=== PATIENT | female | born 1960 | race Caucasian/White ===

== ENCOUNTER → 2017-12-15 | Outpatient (CLI) | payer BC, MEDICARE ==
--- NOTE | 2017-12-19 09:14 | MM ---
Reason for exam: screening (asymptomatic). Last mammogram was performed 1 year and 4 months ago. History: Patient is postmenopausal. Family history of breast cancer in sister at age 55 and breast cancer in mother at age 63. Benign left mammotome panel of the left breast, June 26, 2008. Physical Findings: A clinical breast exam by your physician is recommended on an annual basis and results should be correlated with mammographic findings. MG 3D Screening Mammo W/Cad Bilateral CC and MLO view(s) were taken. Prior study comparison: August 05, 2016, bilateral MG screening mammo w CAD. August 04, 2015, bilateral MG screening mammo w CAD. June 07, 2014, bilateral MG screening mammo w CAD. January 06, 2012, bilateral digital screening mammo w/CAD. The breast tissue is heterogeneously dense. This may lower the sensitivity of mammography. Previous mammotome biopsy in the left breast. No significant changes when compared with prior studies. ASSESSMENT: Negative, BI-RAD 1 RECOMMENDATION: Routine screening mammogram of both breasts in 1 year.
== END | disposition home or self-care (01) ==
LOC: RADMAMWWP 08:27
PROVIDERS: ATTEND Obstetrics & Gynecology
DX: Z12.31 Encounter for screening mammogram for malignant neoplasm of breast (principal)
CPT/HCPCS: 77063; 77067

== ENCOUNTER → 2018-10-03 | Outpatient (CLI) | payer BC ==
--- NOTE | 2018-10-03 16:01 | CT ---
EXAMINATION TYPE: CT brain wo con DATE OF EXAM: 10/03/2018 COMPARISON: None HISTORY: c/o headaches to left side of head X [address] DLP: 1108.[address] of the brain was performed. The ventricles, basal cisterns and sulci overlying the cerebral convexities demonstrate mild enlargem ent. There is no evidence for intracranial hemorrhage or sulcal effacement. There is decreased attenuation about the periventricular white matter and deep white matter of both c erebral hemispheres, compatible with chronic small vessel ischemia. Differential diagnosis does inclu de demyelination. No mass effects are seen.No midline shift. Osseous calvarium is intact. Chronic ethmoid sinusitis. Chronic left-sided mastoiditis. Soft tissue within the middle ear cavity may reflect cholesteatoma. If symptoms persist consider MRI. IMPRESSION: 1. Age related atrophic and chronic small vessel ischemic change without acute intracranial process s een at this time.
== END ==
LOC: RADCTMAIN 15:35
PROVIDERS: ATTEND Family Medicine
DX: G31.1 Senile degeneration of brain, not elsewhere classified (principal); I67.82 Cerebral ischemia
CPT/HCPCS: 70450

== ENCOUNTER → 2018-11-09 | Outpatient (CLI) | payer BC ==
--- NOTE | 2018-11-09 15:15 | CT ---
EXAMINATION TYPE: CT soft tissue neck wo con DATE OF EXAM: 11/09/2018 COMPARISON: None HISTORY: 58-year-old female with hoarseness for months/voice change. Achalasia of cardia, screening C T exam. TECHNIQUE: Contiguous axial scanning of the soft tissues of the neck without IV contrast. Coronal and sagittal reconstructions performed. CT DLP: 465.50 mGycm Automated exposure control for dose reduction was used. FINDINGS: Visualized intracranial structures, orbits and globes, paranasal sinuses, and right mastoid air cells appear clear. There is opacification of the left mastoid air cells and left middle ear cavity. Lack of IV contrast limits assessment of the mucosal space. No evident asymmetry of the nasopharynx. Lobulated tissue partially effacing the bilateral vallecular spaces compatible with lingual tonsillar hypertrophy. Noncontrast appearance to the glottic and subglottic structures shows no gross abnormality. Vocal fol ds appear symmetrical. Epiglottis and prevertebral soft tissues are normal. Tracheal column is clear. Thyroid gland appears small. Submandibular and parotid glands appear satisfactory. Scattered prominent but nonenlarged upper cervical lymph nodes measure up to 7 mm. No cervical lympha denopathy by CT size criteria. Chest reported separately. Bones: Mild to moderate degenerative disc disease at C5-T1 levels. IMPRESSION: 1. OPACIFICATION OF THE LEFT MIDDLE EAR CAVITY AND LEFT MASTOID AIR CELLS. CORRELATE FOR OTOMASTOIDIT IS. 2. SOME PROMINENT BUT NONENLARGED UPPER CERVICAL LYMPH NODES MEASURING UP TO 7 MM LIKELY REACTIVE/POS T INFLAMMATORY. 3. LINGUAL TONSILLAR HYPERTROPHY INCIDENTALLY NOTED. 4. ASSESSMENT OF THE MUCOSAL SPACE IS LIMITED BY NONCONTRAST TECHNIQUE. NO OBVIOUS ABNORMALITY IS LING NTIFIED. THE VOCAL FOLDS ARE SYMMETRICAL. 5. CHEST REPORTED SEPARATELY.
--- NOTE | 2018-11-10 04:09 | CTL ---
EXAMINATION TYPE: CT Low Dose Lung DATE OF EXAM ORDERED: 11/09/2018 HISTORY: 58-year-old female with personal history of tobacco use. Lung cancer screening CT DLP: 111.[address] CTDI: 2.9 mGy Automated exposure control for dose reduction was used. SCREENING VISIT: Baseline COMPARISON: None TECHNIQUE: Low dose computed tomography scan was performed through the chest at 1 mm thick sections a nd reconstructed images in the coronal/sagittal plane at 1 mm thick sections. Additional coronal MIP reconstructions performed. CT DIAGNOSTIC QUALITY: Satisfactory FINDINGS: Heart normal size without pericardial effusion. Aorta normal caliber with conventional arch was a branching anatomy. Minimal atherosclerotic arch ayaka cifications are present. Scattered nonenlarged mediastinal lymph nodes. No thoracic lymphadenopathy by CT size criteria. There is mild diffuse bronchial wall thickening and mild diffuse emphysematous change. -4 mm peripheral right upper lobe subpleural pulmonary nodule axial image 71. -4 mm subpleural pulmonary nodule posteromedial left upper lobe axial image 73. -5 mm right middle lobe pulmonary nodule axial image 198. -Tiny 4 mm subpleural pulmonary nodule peripheral left base axial image 221. -4 mm subpleural pulmonary nodule peripheral left lower lobe axial image 179. Some strandy atelectasis or scarring at the inferior lingula. No consolidation or pleural effusion. Visualized upper abdomen shows an indeterminate 1.3 cm nodule within the left adrenal gland showing a ttenuation of 28 Hounsfield units. Bones: Degenerative disc disease mid to lower thoracic spine. No osseous destructive process seen. Th ere is some inferior endplate deformity at T8 suspected remote posttraumatic. IMPRESSION: 1. LungRADS 2 (benign appearance, <1% chance of malignancy) - a few scattered 4 to 5 mm pulmonary nod ules at baseline. 2. COPD with mild diffuse emphysema. 3. A 1.3 cm nodule of the left adrenal gland. RECOMMENDATION: 1. Continue annual low-dose lung cancer screening CT. 2. Smoking cessation. 3. Probable left adrenal adenoma. However, density characteristics are not diagnostic. 6 month follow -up adrenal washout protocol CT recommended. CT LUNG RAD: Lung-Rad 2 Benign Appearance or Behavior
== END ==
LOC: RADCTMAIN 13:47
PROVIDERS: ATTEND Family Medicine
DX: Z12.2 Encounter for screening for malignant neoplasm of respiratory organs (principal); Z87.891 Personal history of nicotine dependence
CPT/HCPCS: 70490; G0297

== ENCOUNTER → 2019-01-15 | Outpatient (CLI) | payer BC ==
--- NOTE | 2019-01-15 17:25 | BD ---
EXAMINATION TYPE: Axial Bone Density DATE OF EXAM: 01/15/2019 COMPARISON: NONE CLINICAL HISTORY: 58-year-old female postmenopausal screening Height: 67 IN Weight: 176 LBS FRAX RISK QUESTIONS: Secondary Osteoporosis: 3. Menopause before 45: YES AGE 42 Current Tobacco Use: YES RISK FACTORS HISTORY OF: Active: YES Diet low in dairy products/other sources of calcium: YES Postmenopausal woman: AGE 42 MEDICATIONS: Thyroid Medications: YES Which medication: SYNTHROID How Lon + YEARS Additional Medications: SYNTHROID, HYDROCODONE, EXAM MEASUREMENTS: Bone mineral densitometry was performed using the [employer] System. Bone mineral density as measured about the Lumbar spine is: ----- L1-L4(G/cm2): 1.324 T Score Values are as follows: ----- L2: 0.5 ----- L3: 1.5 ----- L4: 1.7 ----- L1-L4: 1.2 Bone mineral density BASELINE Bone mineral density about the R hip (g/cm2): 1.004 Bone mineral density about the L hip (g/cm2): 1.008 T Score values are as follows: -----R Neck: -0.2 -----L Neck: -0.2 -----R Total: 0.0 -----L Total: 0.0 Bone mineral density BASELINE IMPRESSION: Normal (Values between +1 and -1 indicate normal bone mass). Consider repeating this study in 5 year s or sooner if there is some new clinical indication. NOTE: T-SCORE=SD OF THE YOUNG ADULT MEAN.
--- NOTE | 2019-01-16 09:29 | MM ---
Reason for exam: screening (asymptomatic). Last mammogram was performed 1 year and 1 month ago. History: Patient is postmenopausal. Family history of breast cancer in sister at age 55 and breast cancer in mother at age 63. Benign left mammotome panel of the left breast, June 26, 2008. Physical Findings: A clinical breast exam by your physician is recommended on an annual basis and results should be correlated with mammographic findings. MG 3D Screening Mammo W/Cad Bilateral CC and MLO view(s) were taken. Prior study comparison: December 15, 2017, bilateral MG 3d screening mammo w/cad. August 12, 2016, right breast MG 3d work up w/cad RT. The breast tissue is heterogeneously dense. This may lower the sensitivity of mammography. Benign appearing bilateral calcifications. No suspicious abnormality. No significant changes when compared with prior studies. ASSESSMENT: Benign, BI-RAD 2 RECOMMENDATION: Routine screening mammogram of both breasts in 1 year.
== END | disposition home or self-care (01) ==
LOC: RADMAMWWP 09:48
PROVIDERS: ATTEND Obstetrics & Gynecology
DX: Z12.31 Encounter for screening mammogram for malignant neoplasm of breast (principal); Z13.820 Encounter for screening for osteoporosis
CPT/HCPCS: 77063; 77067; 77080

== ENCOUNTER → 2020-06-16 | Outpatient (CLI) | payer BC ==
--- NOTE | 2020-06-16 22:22 | XR ---
EXAMINATION TYPE: XR foot complete LT DATE OF EXAM: 06/16/2020 COMPARISON: NONE HISTORY: 59-year-old female M79.672, pain and swelling of the left fifth digit. TECHNIQUE: 3 views FINDINGS: There is some mild soft tissue swelling of the little toe. More distal incidentally noted. Mild bunio n formation. Extensive bony overlap on the lateral view limiting assessment. No acute fracture, sublu xation, dislocation seen. IMPRESSION: Some soft tissue swelling of the little toe. Mild bunion formation. No acute osseous abnormality seen .
== END | disposition home or self-care (01) ==
LOC: RADXRMAIN 14:30
PROVIDERS: ATTEND Family Medicine
DX: M79.89 Other specified soft tissue disorders (principal); M21.612 Bunion of left foot

== ENCOUNTER → 2020-08-06 | Outpatient (CLI) | payer BC ==
--- NOTE | 2020-08-07 08:19 | MM ---
Reason for exam: screening (asymptomatic). Last mammogram was performed 1 year and 7 months ago. History: Patient is postmenopausal. Family history of breast cancer in sister at age 55 and breast cancer in mother at age 63. Benign left mammotome panel of the left breast, June 26, 2008. Physical Findings: A clinical breast exam by your physician is recommended on an annual basis and results should be correlated with mammographic findings. MG Screening Mammo w CAD Bilateral CC and MLO view(s) were taken. Prior study comparison: January 15, 2019, bilateral MG 3d screening mammo w/cad. December 15, 2017, bilateral MG 3d screening mammo w/cad. The breast tissue is heterogeneously dense. This may lower the sensitivity of mammography. There are benign appearing round calcifications bilaterally. Asymmetric breast tissue in the right breast, stable. There is no discrete abnormality. ASSESSMENT: Benign, BI-RAD 2 RECOMMENDATION: Routine screening mammogram of both breasts in 1 year.
== END | disposition home or self-care (01) ==
LOC: RADMAMWWP 10:59
PROVIDERS: ATTEND Obstetrics & Gynecology
DX: Z12.31 Encounter for screening mammogram for malignant neoplasm of breast (principal); Z80.3 Family history of malignant neoplasm of breast
CPT/HCPCS: 77067

== ENCOUNTER → 2021-12-01 | Outpatient (CLI) | payer BC ==
[~2021-12-01] MED LIST: SODIUM CHLORIDE 0.9% 50 ML IVPB NR; SODIUM CHLORIDE 0.9% 500 ML 500 ML in EMPTY BAG 1 BAG IV PRN
[2021-12-01] MEDS: SOTROVIMAB (EUA) 500 MG in SODIUM CHLORIDE 0.9% 100 ML IVPB NR (13:25)
[2021-12-01 13:36] VITALS: TEMP 98.4
[2021-12-01 14:22] VITALS: BP 106/69; PULSE 50; RESP 16
== END ==
LOC: PROCWHC3 12:57
PROVIDERS: ATTEND Nurse Practitioner Family
DX: U07.1 COVID-19 (principal); Z87.891 Personal history of nicotine dependence; Z91.048 Other nonmedicinal substance allergy status

== ENCOUNTER → 2022-01-07 | Outpatient (CLI) | payer BC, MEDICARE ==
--- NOTE | 2022-01-08 11:56 | MM ---
Reason for exam: screening (asymptomatic). Last mammogram was performed 1 year and 5 months ago. History: Patient is postmenopausal. Family history of breast cancer in sister at age 55 and breast cancer in mother at age 63. Benign left mammotome panel of the left breast, June 26, 2008. Physical Findings: A clinical breast exam by your physician is recommended on an annual basis and results should be correlated with mammographic findings. MG 3D Screening Mammo W/Cad Bilateral CC and MLO view(s) were taken. XCCL view(s) were taken of the right breast. Prior study comparison: August 06, 2020, bilateral MG screening mammo w CAD. January 15, 2019, bilateral MG 3d screening mammo w/cad. The breast tissue is heterogeneously dense. This may lower the sensitivity of mammography. Stable benign calcifications. There is no discrete abnormality. No significant changes when compared with prior studies. ASSESSMENT: Benign, BI-RAD 2 RECOMMENDATION: Routine screening mammogram of both breasts in 1 year.
== END | disposition home or self-care (01) ==
LOC: RADMAMWWP 11:45
PROVIDERS: ATTEND Obstetrics & Gynecology
DX: Z12.31 Encounter for screening mammogram for malignant neoplasm of breast (principal); Z78.0 Asymptomatic menopausal state; Z80.3 Family history of malignant neoplasm of breast
CPT/HCPCS: 77063; 77067

== ENCOUNTER → 2023-06-30 | Outpatient (CLI) | payer MEDICARE ==
--- NOTE | 2023-06-30 13:26 | BD ---
EXAMINATION TYPE: Axial Bone Density DATE OF EXAM: 06/30/2023 CLINICAL HISTORY: 62 years old Female. ICD-10 CODE: Z78.0 ASYMPTOMATIC MENOPAUSAL STATE Height: 66in Weight: 168lb FRAX RISK QUESTIONS: Secondary Osteoporosis: 3. Menopause before 45: yes Current Tobacco Use: yes RISK FACTORS HISTORY OF: Active: yes Postmenopausal woman: yes MEDICATIONS: Thyroid Medications: Which medication: Synthroid How Lon+ years Additional Medications: Additional History: EXAM MEASUREMENTS: Bone mineral densitometry was performed using the [employer] System. Bone mineral density as measured about the Lumbar spine is: ----- L1-L4(G/cm2): 1.302 T Score Values are as follows: ----- L1: 0.6 ----- L2: 1.3 ----- L3: 1.2 ----- L4: 0.8 ----- L1-L4: 1.0 Z Score Values are as follows: ----- L1: 1.5 ----- L2: 2.2 ----- L3: 2.1 ----- L4: 1.7 ----- L1-L4: 1.9 Bone mineral density has: Decreased -1.7% since study of: 01-15-2019 Bone mineral density about the R hip (g/cm2): 0.990 Bone mineral density about the L hip (g/cm2): 0.962 T Score values are as follows: -----R Neck: -0.6 -----L Neck: -0.7 -----R Total: -0.1 -----L Total: -0.4 Z Score values are as follows: -----R Neck: 0.4 -----L Neck: 0.4 -----R Total: 0.6 -----L Total: 0.3 Bone mineral density has: Decreased -2.9% since study of: 01-15-2019 FRAX%s: The graph provided illustrates a 6.7% chance for a major osteoporotic fx and a 0.5% chance fo r the hips probability for fx in 10 years time. IMPRESSION: Normal (Values between +1 and -1 indicate normal bone mass). Consider repeating this study in 5 year s or sooner if there is some new clinical indication. NOTE: T-SCORE=SD OF THE YOUNG ADULT MEAN.
== END | disposition home or self-care (01) ==
LOC: RADBDWWP 12:39
PROVIDERS: ATTEND Family Medicine
DX: Z78.0 Asymptomatic menopausal state (principal)
CPT/HCPCS: 77080

== ENCOUNTER → 2023-12-15 | Outpatient (CLI) | payer MEDICARE ==
--- NOTE | 2023-12-15 15:44 | CTL ---
EXAMINATION TYPE: CT Low Dose Lung DATE OF EXAM ORDERED: 12/15/2023 HISTORY: . Lung cancer screening CT DLP: [address] CTDI: 2.68 mGy Automated exposure control for dose reduction was used. COMPARISON: None available. TECHNIQUE: Low dose computed tomography scan was performed through the chest at 1 mm thick sections a nd reconstructed images in multiple planes at 1 mm and [address] DIAGNOSTIC QUALITY: Satisfactory FINDINGS: LUNG NODULES: None. LUNGS: COPD: Severity: None Fibrosis: Severity: None Lymph nodes: No significant adenopathy. Other findings: RIGHT PLEURAL SPACE: Effusion: None Calcification: None Thickening: None Pneumothorax: None LEFT PLEURAL SPACE: Effusion: None Calcification: None Thickening: None Pneumothorax: None HEART: Heart Size: Normal Coronary Calcification: None Pericardial Effusion: None OTHER FINDINGS: Upper abdomen: None Bony thorax: None Supraclavicular region: None Other: None IMPRESSION: 1. Small right middle lobe pulmonary nodule. 2. No acute findings otherwise seen. CT LUNG RAD AND CT CHEST RECOMMENDATION: Lung-Rad 2 Benign Appearance or Behavior: Continue annual sc reening with LDCT in 12 months.
== END | disposition home or self-care (01) ==
LOC: RADCTMAIN 14:54
PROVIDERS: ATTEND Family Medicine
DX: Z12.2 Encounter for screening for malignant neoplasm of respiratory organs (principal); R91.1 Solitary pulmonary nodule; F17.210 Nicotine dependence, cigarettes, uncomplicated
CPT/HCPCS: 71271

== ENCOUNTER → 2024-03-15 | Outpatient (CLI) | payer MEDICARE ==
--- NOTE | 2024-03-15 16:41 | CT ---
EXAMINATION TYPE: CT brain wo/w con DATE OF EXAM: 03/15/2024 COMPARISON: 10/03/2018 HISTORY: syncope CT DLP: 2163.2mGycm CONTRAST: CT scan of the head is performed without and with IV Contrast, patient injected with 100 mL of Isovue 370. Unenhanced followed by contrast enhanced CT of the brain is submitted for evaluation. The ventricles are midline. There is no evidence for intracranial hemorrhage or extra-axial collection. No mass e ffects are identified. Visualized bony calvarium is intact. Contrast is administered and no enhanci ng lesions are detected. No pathologic enhancement is identified. If symptoms persist consider MRI. IMPRESSION: Unremarkable CT brain.
--- NOTE | 2024-03-16 09:40 | US ---
EXAMINATION TYPE: US carotid duplex BILAT DATE OF EXAM: 03/15/2024 COMPARISON: NONE CLINICAL INDICATION: Female, 63 years old with history of G45.3 AMAUROSIS FUGAX,R20. HAND NUMBNESS,R2 0.2 TINGLING OF S; TECHNIQUE: Carotid duplex ultrasound examination. Indirect Doppler criteria was utilized. FINDINGS: EXAM MEASUREMENTS: RIGHT: Peak Systolic Velocity (PSV) cm/sec ----- Right CCA: 50.0 ----- Right ICA: 128.0 ----- Right ECA: 86.0 ICA/CCA ratio: 2.6 RIGHT: End Diastole cm/sec ----- Right CCA: 9.6 ----- Right ICA: 21.8 ----- Right ECA: 12.2 LEFT: Peak Systolic Velocity (PSV) cm/sec ----- Left CCA: 69.6 ----- Left ICA: 102.0 ----- Left ECA: 103.0 ICA/CCA ratio: 1.5 LEFT: End Diastole cm/sec ----- Left CCA: 17.4 ----- Left ICA: 29.3 ----- Left ECA: 20.8 VERTEBRALS (direction of flow): Right Vertebral: Antegrade Left Vertebral: Antegrade Rhythm: Normal Right ICA/CCA ratio 2.6 IMPRESSION: 1. Moderate heterogeneous calcified plaque within the right carotid bifurcation. Based on peak systol ic velocities and ratios, there is a moderate 50-69% stenosis of the proximal right internal carotid artery. 2. No hemodynamically significant stenosis in the left internal carotid artery. Criteria for Assigning % of Stenosis / Diameter reduction (Estimation based on the indirect measurements of the internal carotid artery velocities (ICA PSV). 1. Normal (no stenosis)=ICA PSV < 125 cm/s: ratio < 2.0: ICA EDV<40 cm/s. 2. Less than 50% stenosis=ICA PSV < 125 cm/s: ratio < 2.0: ICA EDV<40 cm/s. 3. 50 to 69% stenosis=ICA PSV of 125 to 230 cm/s: ration 2.0 ? 4.0: ICA EDV 40-100 cm/s. 4. Greater than 70% stenosis to near occlusion= ICA PSV > 230 cm/s: ratio > 4.0: ICA EDV > 100 cm/s. 5. Near occlusion= ICA PSV velocities may be low or undetectable: variable ratio and ICA EDV. 6. Total occlusion=unable to detect flow.
--- NOTE | 2024-03-18 20:24 | MM ---
Reason for Exam: Screening (asymptomatic). Last mammogram was performed 1 year(s) and 2 month(s) ago. Patient History: Menarche at age 15. First Full-Term at age 22. Postmenopausal. 06/26/2008, Benign Core Biopsy on the left side. Sister had breast cancer, age 55. Mother had breast cancer, age 63. Risk Values: Rolf 5 year model risk: 7.1%. NCI Lifetime model risk: 29.8%. Prior Study Comparison: 08/06/2020 Bilateral Screening Mammogram, [facility]. 01/07/2022 Bilateral Screening Mammogram, [facility]. 01/10/2023 Bilateral MG 3D screening mammo w/cad, [facility]. Tissue Density: The breasts are heterogeneously dense, which may obscure small masses. Findings: Analyzed By CAD. Benign bilateral oil cyst calcifications. There is no suspicious group of microcalcifications or new suspicious mass in either breast. Overall Assessment: Benign, BI-RAD 2 Management: Screening Mammogram of both breasts in 1 year. SEE NOTE BELOW IN REGARDS TO PATIENT'S INCREASED 5 YEAR ROLF SCORE AND INCREASED LIFETIME RISK SCORE. Patient should continue monthly self-breast exams. A clinical breast exam by your physician is recommended on an annual basis. This exam should not preclude additional follow-up of suspicious palpable abnormalities. Note on Rolf scores and lifetime risk: 1. A Rolf score greater than 3% is considered moderate risk. If this is the case, consider specialist referral to assess eligibility for a risk reducing agent. 2. If overall lifetime risk for the development of breast cancer is 20% or higher, the patient may qualify for future screening with alternating mammogram and breast MRI. Electronically signed and approved by: Ben Gomez M.D. Radiologist
== END | disposition home or self-care (01) ==
LOC: RADMAMWWP 15:10
PROVIDERS: ATTEND Family Medicine
DX: Z12.31 Encounter for screening mammogram for malignant neoplasm of breast (principal); I65.21 Occlusion and stenosis of right carotid artery; R55 Syncope and collapse; Z80.3 Family history of malignant neoplasm of breast; Z78.0 Asymptomatic menopausal state
CPT/HCPCS: 77067; 77063; 93880; 70470; Q9967

== ENCOUNTER → 2024-04-12 | Outpatient (CLI) | payer MEDICARE ==
--- NOTE | 2024-04-12 12:49 | EEG ---
ELECTROENCEPHALOGRAM REPORT PREAMBLE: This is a 63-year-old female who had an episode 3 to 4 weeks ago of a near syncopal event. She was working outside for couple of hours when she felt dizzy and almost passed out. CURRENT MEDICATIONS: 1. Synthroid. 2. Aspirin. 3. [place]. EEG FINDINGS: This is a 21-channel prolonged, digital EEG recorded with video component, utilizing 10/[employer] international system with referential and bipolar montages. The recording start time is 8:37 a.m. on 04/12/2024 and recording end time is 9:31 a.m. on 04/12/2024. The background consists of well developed, well regulated, moderate voltage activity in 12 hertz alpha. Background is posterior dominant and reactive to eye opening and closing. Photic driving response was seen with some flash frequencies. Drowsiness was seen with appearance of bilaterally symmetric theta frequency rhythm. Some brief stage 2 sleep was seen with presence of sleep spindles. More deeper stages of sleep were not seen. No focal or generalized epileptiform activity was seen. EKG channel showed no obvious arrhythmia. IMPRESSION: This is a normal prolonged, EEG during wakefulness, drowsiness, and stage 2 sleep. No focal, lateralized or epileptiform activity was seen. MMODL / IJN: [id number] /
== END ==
LOC: NEUROMAIN 08:01
PROVIDERS: ATTEND Family Medicine
DX: R55 Syncope and collapse (principal); G45.3 Amaurosis fugax; R20.0 Anesthesia of skin; R20.2 Paresthesia of skin; R26.9 Unspecified abnormalities of gait and mobility; Z91.040 Latex allergy status; Z87.891 Personal history of nicotine dependence
CPT/HCPCS: 95812

== ENCOUNTER 2024-07-24 10:24 | Emergency (ER) | payer MEDICARE ==
--- NOTE | 2024-07-24 11:30 | ED ---
Back Pain HPI - General Chief Complaint: Back Pain/Injury Stated Complaint: back pain Time Seen by Provider: 07/24/24 10:38 Source: patient, RN notes reviewed Limitations: no limitations - History of Present Illness Initial Comments: This is a 63-year-old female presents emergency department for chief complaint of right lower lumbar back pain. Patient states that pain has been present since last week Tuesday and has been relatively the same pain over the past week. Patient was evaluated at [facility] on and stayed overnight until Tuesday and was discharged however high pain has been intractable. Patient was evaluated by her primary care provider as well for she was instructed report to the emergency department today for further evaluation of intractable back pain. She denies loss of bladder or bowel continence, saddle anesthesias, history of IV drug use, fevers, chills, urinary symptoms. States that she feels quite nauseated when pain arises. States that she cannot get comfortable and any type of movement exacerbates the pain - Related Data Home Medications Medication Instructions Recorded Confirmed Atorvastatin [Lipitor] 40 mg PO DAILY 12/18/15 07/24/24 Aspirin EC [Ecotrin Low Dose] 81 mg PO DAILY 07/24/24 07/24/24 Hydrocodone/Acetaminophen [[place] 1 tab PO QID 07/24/24 07/24/24 10-325] Levothyroxine Sodium [Synthroid] 125 mcg PO DAILY 07/24/24 07/24/24 predniSONE See Taper PO DIRECTED 07/24/24 07/24/24 tiZANidine [Zanaflex] 4 mg PO Q6H PRN 07/24/24 07/24/24 Allergies Allergy/AdvReac Type Severity Reaction Status Date / Time latex Allergy Rash/Hives Verified 07/24/24 14:15 Review of Systems ROS Statement: Those systems with pertinent positive or pertinent negative responses have been documented in the HPI. ROS Other: All systems not noted in ROS Statement are negative. Past Medical History Past Medical History: COPD, Hyperlipidemia, Osteoarthritis (OA), Thyroid Disorder Additional Past Medical History / Comment(s): Back pain History of Any Multi-Drug Resistant Organisms: None Reported Past Surgical History: Orthopedic Surgery, Tonsillectomy, Tubal Ligation, Uterine Ablation Additional Past Surgical History / Comment(s): arthroscopy knee Past Anesthesia/Blood Transfusion Reactions: No Reported Reaction Past Psychological History: No Psychological Hx Reported Smoking Status: Current every day smoker Past Alcohol Use History: Occasional Past Drug Use History: Marijuana - Past Family History Mother Sister(s) Family Medical History: Cancer Father Family Medical History: Cancer Mother Family Medical History: Cancer Sister(s) Family Medical History: Cancer General Exam Limitations: no limitations General appearance: alert, in no apparent distress Head exam: Present: atraumatic, normocephalic, normal inspection ENT exam: Present: normal exam, mucous membranes moist Neck exam: Present: normal inspection. Absent: tenderness, meningismus, lymphadenopathy Respiratory exam: Present: normal lung sounds bilaterally. Absent: respiratory distress, wheezes, rales, rhonchi, stridor Cardiovascular Exam: Present: regular rate, normal rhythm, normal heart sounds. Absent: systolic murmur, diastolic murmur, rubs, gallop, clicks GI/Abdominal exam: Present: soft, normal bowel sounds. Absent: distended, tenderness, guarding, rebound, rigid Extremities exam: Present: normal inspection, full ROM, normal capillary refill. Absent: tenderness, pedal edema, joint swelling, calf tenderness Back exam: Present: normal inspection, tenderness (right lumbar spine to palpation, no overlying skin changes/redness or abscess) Neurological exam: Present: alert, oriented X3, CN II-XII intact Skin exam: Present: warm, dry, intact, normal color. Absent: rash Course Vital Signs 07/24/24 07/24/24 07/24/24 10:25 13:15 16:10 Temperature 97.5 F L 98.1 F 98 F Pulse Rate 63 51 L 58 L Respiratory 24 18 18 Rate Blood Pressure 167/85 135/64 138/82 O2 Sat by Pulse 97 97 97 Oximetry Medical Decision Making - Medical Decision Making Was pt. sent in by a medical professional or institution (, PA, SILVERING DEPARTMENT SUPERVISOR, urgent care, hospital, or [facility]...) When possible be specific @ -No Did you speak to anyone other than the patient for history (EMS, parent, family, police, friend...)? What history was obtained from this source @ -No Did you review nursing and triage notes (agree or disagree)? Why? @ -I reviewed and agree with nursing and triage notes Were old charts reviewed (outside hosp., previous admission, EMS record, old EKG, old radiological studies, urgent care reports/EKG's, [facility] records)? Report findings @ -No old charts were reviewed Differential Diagnosis (chest pain, altered mental status, abdominal pain women, abdominal pain men, vaginal bleeding, weakness, fever, dyspnea, syncope, headache, dizziness, GI bleed, back pain, seizure, CVA, palpatations, mental health, musculoskeletal)? @ -Differential Back Pain: Strain, zoster, cauda equina syndrome, epidural abscess, vertebral osteomyelit is, discitis, fracture, subluxation, disc herniation, DJD, spinal stenosis, dissection, AAA, pancreatitis, peptic ulcer disease, pyelonephritis, kidney stone, this is not meant to be an all-inclusive list. EKG interpreted by me (3pts min.). @ -None X-rays interpreted by me (1pt min.). @ -None done CT interpreted by me (1pt min.). @ -CT Imaging of the lumbar spine reveals multilevel degenerative disc disease with multilevel central stenosis U/S interpreted by me (1pt. min.). @ -None done What testing was considered but not performed or refused? (CT, X-rays, U/S, labs)? Why? @ -None What meds were considered but not given or refused? Why? @ -None Did you discuss the management of the patient with other professionals (professionals i.e. , PA, SILVERING DEPARTMENT SUPERVISOR, lab, RT, psych nurse, social sciences chair, heavy antiarmor weapons infantryman, teacher, corporate ethics officer, director case)? Give summary @ -i spoke with the patient's PCP, Dr. Plaza, in regard to the patient's presentation is requesting that patient undergo repeat CT imaging and chest for inflammatory markers such as ESR and CRP and discharged the patient home with close outpatient follow-up for further evaluation of back pain Was smoking cessation discussed for >3mins.? @ -No Was critical care preformed (if so, how long)? @ -No Were there social determinants of health that impacted care today? How? (Homelessness, low income, unemployed, alcoholism, drug addiction, transportation, low edu. Level, literacy, decrease access to med. care, [place] [facility], rehab)? @ -No Was there de-escalation of care discussed even if they declined (Discuss DNR or withdrawal of care, Hospice)? DNR status @ -No What co-morbidities impacted this encounter? (DM, HTN, Smoking, COPD, CAD, Cancer, CVA, ARF, Chemo, Hep., AIDS, mental health diagnosis, sleep apnea, morbid obesity)? @ -None Was patient admitted / discharged? Hospital course, mention meds given and route, prescriptions, significant lab abnormalities, going to OR and other pertinent info. @ -Discharge. 63-year-old female with right lower back pain. Patient is noted to have tenderness to palpation of the right lumbar back. Vitals are stable. There are no red flag findings concerning for cauda equina such as loss of bladder or bowel continence or saddle anesthesias. Patient is provided with antiemetics and pain medication pending laboratory results. I spoke with patient's primary care provider and is recommend that she undergo repeat CT imaging for further evaluation reveals multilevel degenerative disc disease with mild to a level central stenosis. Laboratory results remarkable for Pauly kocytosis of 15.7, left shift of 10.7, CMP unremarkable, urinalysis negative for signs of infection. CRP mildly elevated at 1.4. Patient is provided with adequate analgesic and is requesting discharge at this time. All questions answered at bedside and strict return parameters as the patient she is verbalized understanding. Case discussed with Dr. Marx Undiagnosed new problem with uncertain prognosis? @ -No Drug Therapy requiring intensive monitoring for toxicity (Heparin, Nitro, Insulin, Cardizem)? @ -No Were any procedures done? @ -No Diagnosis/symptom? @ -right lumbar back pain Acute, or Chronic, or Acute on Chronic? @ -acute Uncomplicated (without systemic symptoms) or Complicated (systemic symptoms)? @ -uncomplicated Side effects of treatment? @ -No Exacerbation, Progression, or Severe Exacerbation? @ -No Poses a threat to life or bodily function? How? (Chest pain, [place], [place], pneumonia, PE, COPD, DKA, ARF, appy, cholecystitis, CVA, Diverticulitis, Homicidal, Suicidal, threat to staff... and all critical care pts) @ -No - Lab Data Result diagrams: 07/24/24 11:36 07/24/24 11:36 Lab Results 07/24/24 07/24/24 07/24/24 Range/Units 11:36 11:36 11:36 WBC 15.7 H (3.8-10.6) k/uL RBC 5.13 (3.80-5.40) m/uL Hgb 16.2 H (11.4-16.0) gm/dL Hct 48.7 H (34.0-46.0) % MCV 95.1 (80.0-100.0) fL MCH 31.6 (25.0-35.0) pg MCHC 33.2 (31.0-37.0) g/dL RDW 13.3 (11.5-15.5) % Plt Count 324 (150-450) k/uL MPV 7.9 Neutrophils % 69 % Lymphocytes % 24 % Monocytes % 4 % Eosinophils % 2 % Basophils % 0 % Neutrophils # 10.7 H (1.3-7.7) k/uL Lymphocytes # 3.8 (1.0-4.8) k/uL Monocytes # 0.6 (0-1.0) k/uL Eosinophils # 0.3 (0-0.7) k/uL Basophils # 0.0 (0-0.2) k/uL Sodium 140 (137-145) mmol/L Potassium 3.4 L (3.5-5.1) mmol/L Chloride 102 (98-107) mmol/L Carbon Dioxide 30 (22-30) mmol/L Anion Gap 8 mmol/L BUN 12 (7-17) mg/dL Creatinine 0.69 (0.52-1.04) mg/dL Est GFR (CKD-EPI)AfAm >90 (>60 ml/min/1.73 sqM) Est GFR (CKD-EPI)NonAf >90 (>60 ml/min/1.73 sqM) Glucose 96 (74-99) mg/dL Calcium 9.8 (8.4-10.2) mg/dL Total Bilirubin 0.8 (0.2-1.3) mg/dL AST 20 (14-36) U/L ALT 18 (4-34) U/L Alkaline Phosphatase 78 (38-126) U/L C-Reactive Protein 1.4 H (<1.0) mg/dL Total Protein 7.0 (6.3-8.2) g/dL Albumin 4.4 (3.5-5.0) g/dL Urine Color Urine Appearance (Clear) Urine pH (5.0-8.0) Ur Specific [place] (1.001-1.035) Urine Protein (Negative) Urine Glucose (UA) (Negative) Urine Ketones (Negative) Urine Blood (Negative) Urine Nitrite (Negative) Urine Bilirubin (Negative) Urine Urobilinogen (<2.0) mg/dL Ur Leukocyte Esterase (Negative) Urine RBC (0-5) /hpf Urine WBC (0-5) /hpf Ur Squamous Epith Cells (0-4) /hpf Urine Mucus (None) /hpf 07/24/24 Range/Units 11:37 WBC (3.8-10.6) k/uL RBC (3.80-5.40) m/uL Hgb (11.4-16.0) gm/dL Hct (34.0-46.0) % MCV (80.0-100.0) fL MCH (25.0-35.0) pg MCHC (31.0-37.0) g/dL RDW (11.5-15.5) % Plt Count (150-450) k/uL MPV Neutrophils % % Lymphocytes % % Monocytes % % Eosinophils % % Basophils % % Neutrophils # (1.3-7.7) k/uL Lymphocytes # (1.0-4.8) k/uL Monocytes # (0-1.0) k/uL Eosinophils # (0-0.7) k/uL Basophils # (0-0.2) k/uL Sodium (137-145) mmol/L Potassium (3.5-5.1) mmol/L Chloride (98-107) mmol/L Carbon Dioxide (22-30) mmol/L Anion Gap mmol/L BUN (7-17) mg/dL Creatinine (0.52-1.04) mg/dL Est GFR (CKD-EPI)AfAm (>60 ml/min/1.73 sqM) Est GFR (CKD-EPI)NonAf (>60 ml/min/1.73 sqM) Glucose (74-99) mg/dL Calcium (8.4-10.2) mg/dL Total Bilirubin (0.2-1.3) mg/dL AST (14-36) U/L ALT (4-34) U/L Alkaline Phosphatase (38-126) U/L C-Reactive Protein (<1.0) mg/dL Total Protein (6.3-8.2) g/dL Albumin (3.5-5.0) g/dL Urine Color Light Yellow Urine Appearance Clear (Clear) Urine pH 5.5 (5.0-8.0) Ur Specific [place] 1.015 (1.001-1.035) Urine Protein Negative (Negative) Urine Glucose (UA) Negative (Negative) Urine Ketones Negative (Negative) Urine Blood Negative (Negative) Urine Nitrite Negative (Negative) Urine Bilirubin Negative (Negative) Urine Urobilinogen <2.0 (<2.0) mg/dL Ur Leukocyte Esterase Moderate H (Negative) Urine RBC 1 (0-5) /hpf Urine WBC 4 (0-5) /hpf Ur Squamous Epith Cells 1 (0-4) /hpf Urine Mucus Rare H (None) /hpf Disposition Clinical Impression: Back pain Disposition: HOME SELF-CARE Condition: Good Instructions (If sedation given, give patient instructions): Acute Low Back Pain (ED) Additional Instructions: Return to the emergency department for any new or worsening symptoms. Recommend follow-up outpatient with your primary care provider for further evaluation. Is patient prescribed a controlled substance at d/c from ED?: No Referrals: Harvey Plaza Jr, [Primary Care Provider] - 1-2 days Time of Disposition: 15:24
[2024-07-24] MEDS: ONDANSETRON 4 MG/2 ML VIAL IVP STA (11:40)
[2024-07-24] MEDS: HYDROmorphone 1 MG/ML 1 ML SYRINGE IVP STA ×3 (11:40→15:41)
[2024-07-24 11:47] LABS: Basophils % (A) 0 %; Eosinophils # (A) 0.3 k/uL (0-0.7); Eosinophils % (A) 2 %; HCT 48.7 % (34.0-46.0); HGB 16.2 gm/dL (11.4-16.0); Lymphocytes # (A) 3.8 k/uL (1.0-4.8); Lymphocytes % (A) 24 %; MCH 31.6 pg (25.0-35.0); MCHC 33.2 g/dL (31.0-37.0); MCV 95.1 fL (80.0-100.0); Mean Platelet Volume 7.9; Monocytes # (A) 0.6 k/uL (0-1.0); Monocytes % (A) 4 %; Neutrophils # (A) 10.7 k/uL (1.3-7.7); Neutrophils % (A) 69 %; Platelet Count 324 k/uL (150-450); RBC 5.13 m/uL (3.80-5.40); RDW 13.3 % (11.5-15.5); WBC 15.7 k/uL (3.8-10.6)
[2024-07-24 12:01] LABS: ALT 18 U/L (4-34); AST 20 U/L (14-36); African American GFR (CKD) >90 (>60 ml/min/1.73 sqM); Albumin 4.4 g/dL (3.5-5.0); Alkaline Phosphatase 78 U/L (38-126); Blood Urea Nitrogen 12 mg/dL (7-17); Calcium 9.8 mg/dL (8.4-10.2); Carbon Dioxide 30 mmol/L (22-30); Chloride 102 mmol/L (98-107); Glucose 96 mg/dL (74-99); Non-African American GFR(CKD) >90 (>60 ml/min/1.73 sqM); Potassium 3.4 mmol/L (3.5-5.1); Total Bilirubin 0.8 mg/dL (0.2-1.3)
[2024-07-24 12:25] LABS: Anion Gap 8 mmol/L; Sodium 140 mmol/L (137-145)
[2024-07-24 13:17] VITALS: RESP 18
[2024-07-24 13:19] LABS: Appearance,Urine Clear (Clear); Bilirubin,Urine Negative (Negative); Blood,Urine Negative (Negative); Color,Urine Light Yellow; Glucose,Urine (UA) Negative (Negative); Ketones,Urine Negative (Negative); Leukocyte Esterase,Urine Moderate (Negative); Mucus,Urine Rare /hpf; Nitrite,Urine Negative (Negative); PH, Urine 5.5 (5.0-8.0); Protein,Urine Negative (Negative); RBC,Urine 1 /hpf (0-5); Specific Gravity,Urine 1.015 (1.001-1.035); Squamous Epithelial Cell,Urine 1 /hpf (0-4); Urobilinogen,Urine <2.0 mg/dL (<2.0); WBC,Urine 4 /hpf (0-5)
--- NOTE | 2024-07-24 15:03 | CT ---
EXAMINATION TYPE: CT lumbar spine wo con DATE OF EXAM: 07/24/2024 2:47 PM COMPARISON: The HISTORY: Lumbar pain, low rt side back pain, denies injury CT DLP: 857.2 mGycm Automated exposure control for dose reduction was used. Unenhanced CT of the lumbar spine was performed. Bone and soft tissue window settings are submitted as well as coronal and sagittal reconstructions. L1-L2: Normal disc space height. Disc I density material likely reflects calcification. No disc herni ation protrusion or central stenosis. No facet joint arthropathy. No evidence for foraminal encroac hment. L2-L3: Severe degenerative disc space narrowing with vacuum disc. Moderate posterior disc bulge with effacement of the ventral thecal sac and bilateral lateral recess stenosis and foraminal encroachment . Borderline central stenosis. L3-L4: Mild degenerative disc space narrowing with posterior disc bulge. Mild central stenosis. Ellen trang are patent bilaterally. L4-L5: Mild degenerative disc space narrowing with posterior disc bulge. Mild central stenosis. Ellen trang are patent bilaterally. L5-S1: Normal disc space height. No disc herniation protrusion or central stenosis. No facet joint arthropathy. No evidence for foraminal encroachment. IMPRESSION: Multilevel degenerative disc disease with multilevel central stenosis. [facility], , 07/24/2024 3:01 PM
[2024-07-24 16:12] VITALS: BP 138/82; PULSE 58; TEMP 98
== END 2024-07-24 16:12 | disposition home or self-care (01) ==
LOC: EC 10:24
DX: M54.50 Low back pain, unspecified
CPT/HCPCS: 36415; 72131; 80053; 81001; 85025; 85652; 86140; 96374; 96375; 96376; 99284

== ENCOUNTER → 2024-07-31 | Outpatient (CLI) | payer MEDICARE ==
--- NOTE | 2024-07-31 21:26 | MR ---
EXAMINATION TYPE: MR lumbar spine wo con DATE OF EXAM: 07/31/2024 COMPARISON: 07/24/2024 CT HISTORY: low back pain that radiates down legs CONTRAST: 0 mL intravenous Gadavist. TECHNIQUE: Multiplanar, multisequence images of the lumbar spine were acquired. FINDINGS: L5-S1: Central broad-based disc bulge is present with mild epidural space impression. No thecal sac c ompression is evident. No spinal canal stenosis present. Mild facet hypertrophy is present. L4-L5: Broad-based disc bulge has mild anterior thecal sac flattening. No AP spinal canal stenosis is present. Neural foramen are patent. Facet hypertrophy with mild ligamentum flavum laxity is present. L3-L4: Broad-based disc bulge has anterior thecal sac flattening. Facet hypertrophy and ligamentum fl avum laxity of posterior lateral thecal sac compression. No spinal canal stenosis present. Neural for amen are patent L2-L3: There is narrowing of the disc space. No focal disc herniation is evident. Disc bulge has mild anterior thecal sac flattening. Mild facet hypertrophy is present. Neural foramen are patent. L1-L2: No significant disc bulge or disc herniation. No spinal canal stenosis. No foraminal stenosi s. T12-L1: No significant disc bulge or disc herniation. No spinal canal stenosis. No foraminal stenos is. IMPRESSION: 1. Disc bulge at L2-3 through L5-S1. 2. Facet hypertrophy L2-3 through L5-S1. 3. No spinal canal stenosis present. Neural foramen are patent. [facility], Workstation: [facility], 07/31/2024 9:24 PM
== END | disposition home or self-care (01) ==
LOC: RADMRIMAIN 19:00
PROVIDERS: ATTEND Orthopaedic Surgery
DX: M47.816 Spondylosis without myelopathy or radiculopathy, lumbar region
CPT/HCPCS: 72148

== ENCOUNTER → 2024-08-15 | Outpatient (CLI) | payer MEDICARE ==
[2024-08-15 09:51] VITALS: BP 127/57; PULSE 60; RESP 16
--- NOTE | 2024-08-15 14:36 | P.PAINPG ---
PQRS Measure Charge Sheet Comment: HISTORY OF PRESENT ILLNESS: A 64 yr old female as a referral from Dr Cole presents today w severe and chronic LBP > 1 yr secondary to radiculopathy, spondylosis and facet arthropathy without myelopathy for evaluation. Pt states pain level is provoked at 8 /10 in intensity, constant, localized in the R lower lumbar spine, predominantly axial, dull in character w occasional shooting pain towards the R hip, buttock and LE. Pain is provoked by bending. Pain is alleviated by physician guided home stret ches from Dr Cole 5 times weekly since May 2024, heat, ice, medications ([place], Ibu), Therma patch topical, repositioning and rest . PMH: OA, COPD, Hyperlipidemia, Hypothyroidism PSH: Knee Arthroscopy, Tonsillectomy, Tubal Ligation, Uterine Ablation SH: Daily tobacco use, Occ ETOH use, Cannabis use FH: Mo- CA. Sis- CA. Fa- CA. All: See list Meds: See list REVIEW OF ORGAN SYSTEMS: CONSTITUTIONAL: No fevers or chills. No recent weight loss. NEUROLOGICAL: + numbness and tingling along the distal extremities. No seizure disorders or headaches. MUSCULOSKELETAL: + pain PSYCHIATRIC: Denies current depression or suicidal thoughts. Physical Examinations : Constitutional : Cooperative , not in acute distress . Neurologic : Cranial nerve II to XII intact. No focal neurological deficits. Psychiatric : alert & oriented x 3. Matching mood & appropriate affect. Judgment & insight intact. Musculoskeletal : Cervical Spine Motor strength in the deltoid and biceps: Normal right side. Normal Left side Motor strength biceps and the wrist extensors: Normal right side . Normal left side Motor strength in the triceps muscle: Normal right side. Normal left side Deep tendon reflexes: Normal at the biceps. Normal at Brachioradialis. Normal at triceps Vertebral body tenderness to deep palpation over Cervical facet loading test: positive bilaterally Spurling test: positive bilaterally Neck distraction test: positive bilaterally Elenita sign: positive bilaterally Lumbar spine Motor strength lower extremities ,thigh and legs 5/5 Right side , 5/5 Left side Deep tendon reflexes : Normal Knee Jerk. Normal Ankle Jerk Vertebral body tenderness over L5 Hollins Test positive R L5-S1 Lumbar facet Loading Test: positive Right / positive Left Range of motion of the lumbar spine Flexion 30 degrees, extension 10 degrees Straight Leg Raise test: Left/ Right positive at degrees Brady test: positive right / positive left. Severe tenderness over the Sacroiliac joint on the Right / Left sides Gaenslen test: positive bilaterally Seated flexion test: positive bilaterally. Sacral spine : Severe tenderness over the Sacroiliac joint: right side / left side Range of motion: Flexion of the lumbar spine <60 degrees Range of motion: Extension of the lumbar spine <20 degrees Gaenslen's Test positive Brady test: positive right side / left side Thigh Thrust Test Sacral Thrust Test Imaging: MRI non contrast lumbar spine from 07/31/24 reviewed Assessment/ Plan : Lumbar radiculopathy Recommendation of R TFESI L5-S1 #1. Risks, benefits of procedure discussed and patient verbalized understanding. Admits to anti- coagulant use or medical history of diabetes. Protocol for discontinuation/ continuation of medications burak procedure discussed. All questions answered. I have spent greater than 30 minutes on patient care today. Dr Thomas was available by phone for the evaluation of this patient. The time was used to review the medical records including relevant urine studies and Prescription history (MAPs), review of the available imaging, evaluation and examination of the patient, coordination of care with the medical staff and if applicable referring physicians, as well as creation of the medical record PQRS Narrative: Smoking Status Former smoker Home Medications: Ambulatory Orders Atorvastatin [Lipitor] 40 mg PO DAILY 12/18/15 Aspirin EC [Ecotrin Low Dose] 81 mg PO DAILY 07/24/24 Hydrocodone/Acetaminophen [[place] 10-325] 1 tab PO QID 07/24/24 Levothyroxine Sodium [Synthroid] 125 mcg PO DAILY 07/24/24 predniSONE See Taper PO DIRECTED 07/24/24 Controlled Substance Measures - Controlled Substance Measures Is patient prescribed a controlled substance at discharge?: No
== END ==
LOC: PNWHC3 08:29
PROVIDERS: ATTEND Specialist
DX: M47.26 Other spondylosis with radiculopathy, lumbar region (principal); Z87.891 Personal history of nicotine dependence; Z91.040 Latex allergy status
CPT/HCPCS: 99211

== ENCOUNTER → 2025-05-16 | Outpatient (CLI) | payer MEDICARE ==
--- NOTE | 2025-05-16 10:34 | MM ---
Reason for Exam: Screening (asymptomatic). Last mammogram was performed 1 year(s) and 2 month(s) ago. Patient History: Menarche at age 15. First Full-Term at age 22. Postmenopausal. 06/26/2008, Benign Core Biopsy on the left side. Sister had breast cancer, age 55. Mother had breast cancer, age 63. Risk Values: Addie 5 year model risk: 7.3%. NCI Lifetime model risk: 29.1%. Prior Study Comparison: 01/07/2022 Bilateral Screening Mammogram, [facility]. 01/10/2023 Bilateral MG 3D screening mammo w/cad, [facility]. 03/15/2024 Bilateral MG 3D screening mammo w/cad, [facility]. Tissue Density: The breasts are extremely dense, which lowers the sensitivity of mammography. Findings: Analyzed By CAD. There is no suspicious group of microcalcifications or new suspicious mass in either breast. Benign-appearing calcifications. Overall Assessment: Benign, BI-RAD 2 Management: Screening Mammogram of both breasts in 1 year. . Patient should continue monthly self-breast exams. A clinical breast exam by your physician is recommended on an annual basis. This exam should not preclude additional follow-up of suspicious palpable abnormalities. Note on Addie scores and lifetime risk: 1. A Addie score greater than 3% is considered moderate risk. If this is the case, consider specialist referral to assess eligibility for a risk reducing agent. 2. If overall lifetime risk for the development of breast cancer is 20% or higher, the patient may qualify for future screening with alternating mammogram and breast MRI. [facility], , 05/16/2025 10:30 AM. Electronically signed and approved by: Jadon Knight M.D. Radiologis
== END | disposition home or self-care (01) ==
LOC: RADMAMWWP 09:58
PROVIDERS: ATTEND Family Medicine
DX: Z12.31 Encounter for screening mammogram for malignant neoplasm of breast (principal); R92.343 Mammographic extreme density, bilateral breasts; Z78.0 Asymptomatic menopausal state; Z80.3 Family history of malignant neoplasm of breast; R92.1 Mammographic calcification found on diagnostic imaging of breast
CPT/HCPCS: 77063; 77067